=== PATIENT | male | born 1985 | race Two or more races ===

== ENCOUNTER 2019-04-28 07:50 | Emergency (ER) | payer OTHER ==
[~2019-04-28] VITALS: Ht 170.2 cm; Wt 98.9 kg
[2019-04-28 08:01] VITALS: BP 151/77
--- NOTE | 2019-04-28 08:01 | NUR ---
ED Nurse Note: Patient arrived to ED complaining of L ear being clogged x 2 months. He states that he had his right ear flushed 2 months ago at [facility] and could hear great afterward. He asked them to flush the left ear, as well but they didn't. He states he just wants his left ear flushed. Patient AxO x 4, no complaints of pain or dizziness.
--- NOTE | 2019-04-28 09:21 | NUR ---
ED Nurse Note: Dr Paul at bedside.
[2019-04-28] MEDS ORDERED: AMOXICILLIN500 MG ORAL (09:24)
[2019-04-28 09:26] VITALS: BP 139/79
--- NOTE | 2019-04-28 09:26 | NUR ---
ER DISCHARGE NOTE: Patient is cleared to be discharged per Dr. Paul. Patient is AxO x 4, VSS Patient verbalized understanding of medication and discharge instructions. ID band removed. Patient is able to ambulate with steady gait and took all belongings.
--- NOTE | 2019-04-28 09:59 | Emergency Room Report ---
History of Present Illness General Chief Complaint: Earache Source: Patient Present Illness HPI Patient presents to the emergency department today complaining of sensation of clogged left ears. Patient denies any fever nausea vomiting diarrhea chills. States that he thinks there might be ear wax in his left ear. He does have a history of ear wax in his right ear and this was cleared. No other complaints were noted. Symptoms noted to be mild. Patient denies any hearing difficulty. No history of trauma. No other modifying factors. No other associated signs and symptoms. No other complaints were noted. Symptoms noted to be mild. Allergies: Coded Allergies: No Known Allergies (Unverified , 04/28/19) Patient History Past Medical History: none Past Surgical History: none Pertinent Family History: none Social History: Denies: smoking, alcohol use, drug use Reviewed Nursing Documentation: PMH: Agreed; PSxH: Agreed Nursing Documentation-PMH Past Medical History: No Stated History Review of Systems All Other Systems: negative except mentioned in HPI Physical Exam Vital Signs Date Time Temp Pulse Resp B/P (MAP) Pulse Ox O2 Delivery O2 Flow Rate FiO2 04/28/19 07:53 98.8 113 19 151/77 (101) 96 Room Air Sp02 EP Interpretation: reviewed, normal General Appearance: normal inspection, well appearing, no apparent distress, alert Head: atraumatic Eyes: bilateral eye normal inspection ENT: hearing grossly normal, normal voice, other - Fluid in left tympanic membrane. No evidence of cerumen occlusion. Neck: normal inspection, full range of motion, supple, no bony tend Respiratory: normal inspection, lungs clear, normal breath sounds, no respiratory distress, no retraction, no wheezing Cardiovascular #1: regular rate, rhythm, no edema Gastrointestinal: normal inspection, normal bowel sounds, non tender, soft, no guarding, no hernia Genitourinary: no CVA tenderness Musculoskeletal: normal inspection, back normal, normal range of motion Neurologic: alert, responsive, speech normal, normal inspection Psychiatric: normal inspection, judgement/insight normal, mood/affect normal Skin: other - No rashes. Multiple tattoos. Medical Decision Making Diagnostic Impression: Primary Impression: Acute serous otitis media of left ear ER Course Patient presents to the emergency department today complaint left earache. Differential considerations include otitis media, otitis externa. Patient's exam is consistent with otitis media with effusion. I felt the patient would benefit from decongestants. Patient was given a prescription for amoxicillin if his symptoms do not improve. Recommend outpatient follow-up as needed. Patient is advised to follow up with primary doctor in 2-3 days and return the emergency room for any worsening symptoms and as needed. Last Vital Signs Date Time Temp Pulse Resp B/P (MAP) Pulse Ox O2 Delivery O2 Flow Rate FiO2 04/28/19 09:26 98.5 76 17 139/79 99 Room Air Status: improved Disposition: HOME, SELF-CARE Condition: Stable Scripts Amoxicillin* (AMOXIL*) 500 Mg Capsule 500 MG ORAL THREE TIMES A DAY, #21 CAP Prov: Abdiel Paul MD 04/28/19 Referrals: [facility],REFERRING (PCP) Patient Instructions: Otitis Media With Effusion Abdiel Paul MD Apr 28, 2019 09:59
== END 2019-04-28 09:26 | disposition home or self-care (01) ==
LOC: EMR 09:23
DX: H65.02 Acute serous otitis media, left ear (principal)
CPT/HCPCS: 99282